=== PATIENT | male | born 2000 | race Caucasian/White ===

== ENCOUNTER 2019-08-27 10:50 | Emergency (ER) | payer MEDICAID, SELFPAY ==
[2019-08-27 10:59] VITALS: BP 132/95; PULSE 88; RESP 16; TEMP 37; O2SAT 100; BMI 29.5
--- NOTE | 2019-08-27 11:03 | ED_ITS ---
HPI - General Adult General: Chief complaint: Recheck/Abnormal Lab/Rx Stated complaint: OUT OF SEIZURE MEDS Time Seen by Provider: 08/27/19 10:56 Source: patient Mode of arrival: ambulatory Limitations: no limitations History of Present Illness: HPI narrative: 19-year-old male who has a history of seizures states he ran out of his seizure medicine today. Patient states he took the last one today. Denies any worsening or improving factors. Took the last dose this morning. Associated symptoms: Deny chest pain, dyspnea, headache(s), nausea, rash or vomiting Review of Systems Const: Denies: fever(s), chills, body aches or change in appetite Eyes: Denies: blurry vision or eye discomfort ENMT: Denies: throat pain or dental pain Card: Denies: chest pain Resp: Denies: dyspnea GI: Denies: abdominal pain, nausea, vomiting or diarrhea : Denies: dysuria Musc: Denies: neck pain or back pain Skin/Breast: Denies: rash Neuro: Denies: headache(s) Psych: Denies: depression Sixto/Lymph: Denies: easy bruising All/Imm: Denies: urticaria Physical Exam Const: COMMON NORMALS: no acute distress, patient oriented x3 and healthy appearing HENMT: COMMON NORMALS: normocephalic and atraumatic HEAD & SCALP: normocephalic and atraumatic Eye: COMMON NORMALS: Equal, round and reactive pupils present and EOMs intact bilaterally PUPIL: Yes Equal, round and reactive pupils present Neck/C-Spine: COMMON NORMALS: full ROM and supple Chest: COMMONS NORMALS: normal inspection of the chest and normal palpation of entire chest wall Resp: COMMON NORMALS: normal respiratory effort, No retractions, No use of accessory muscles and clear to auscultation bilaterally AUSCULTATION: clear to auscultation bilaterally Cardio: COMMON NORMALS: regular rate, regular rhythm and No murmurs present (Cardio) RATE: regular rate RHYTHM: regular rhythm GI: COMMON NORMALS: Normal to inspection, nondistended, normoactive bowel sounds present, Soft to palpation, non-tender and no masses PALPATION: Yes Soft to palpation Extremity: COMMON NORMALS: normal to inspection and full ROM Neuro: COMMON NORMALS: patient oriented x3, moves all extremities and no focal motor deficits Psych: COMMON NORMALS: mental status grossly normal, Normal thought process present and cooperative THOUGHT PROCESS: Normal thought process present Skin: COMMON NORMALS: no rashes or lesions noted and no wounds GENERAL SKIN EXAM: no rashes or lesions noted Course Vital Signs: Vital signs: Vital Signs Temperature 98.6 F 08/27/19 10:59 Pulse Rate 88 08/27/19 10:59 Respiratory Rate 16 08/27/19 10:59 Blood Pressure 132/95 08/27/19 10:59 Pulse Oximetry 100 08/27/19 10:59 MDM - General Adult MDM Narrative: Medical decision making narrative: Patient presents here with medication refill for seizures. Patient ran out of his medications today. Will refill his seizure medication. Discharge Plan Discharge Patient Disposition: Home, Self-Care Condition: Stable Prescriptions: New felbamate 400 mg tablet 400 mg PO TID 7 Days Qty: 90 RF: 0 Discharge Orders: Discharge Order (Routine); Ordered 08/27/19 Ordered By: Babar Wilson Discharge Diet: Advance as tolerated Discharge Activity: Resume usual activity Patient Instructions: Seizures Coding Level of Care Code ED It Infrastructure Engineer for Faheem Cheatham
== END 2019-08-27 11:08 | disposition home or self-care (01) ==
LOC: ER 11:18
PROVIDERS: Emergency Provider Emergency Medicine
DX: Z76.0 Encounter for issue of repeat prescription (principal)
CPT/HCPCS: 12345; 99281; 99282